=== PATIENT | female | born 1990 | race Asian ===

== ENCOUNTER 2025-09-08 11:37 | Emergency (ER) | payer OTHER ==
[~2025-09-08] VITALS: Ht 160 cm; Wt 77.0 kg
[2025-09-08 11:46] VITALS: O2SAT 100
[2025-09-08 12:45] LABS: BASOPHILS % 0.4 % (0.0-2.0); EOSINOPHILS % 3.0 % (0.0-5.0); HEMATOCRIT. 39.7 % (36.0-48.0); HEMOGLOBIN. 13.2 g/dL (12.0-16.0); LYMPHOCYTES % 33.4 % (20.0-50.0); MEAN PLATELET VOLUME 8.1 fl (7.4-10.4); MONOCYTES % 8.5 % (2.0-8.0); NEUTROPHILS % 54.7 % (40.0-76.0); PLATELET 428 x1000/uL (130-400); RED BLOOD CELL COUNT 4.26 mill/uL (4.2-5.4); RED CELL DISTRIBUTION WIDTH 12.9 % (11.6-14.6)
[2025-09-08 12:59] LABS: CREATININE 0.7 mg/dL (0.6-1.0); UREA NITROGEN BLOOD 10 mg/dL (9-23)
[2025-09-08 13:01] LABS: ASPARTATE AMINOTRANSFERASE 14 IU/L (<34); BILIRUBIN DIRECT 0.1 mg/dL (<=3.0); BILIRUBIN TOTAL 0.5 mg/dL (0.1-1.0); PROTEIN TOTAL 7.0 g/dL (6.0-8.3)
[2025-09-08 13:56] VITALS: BP 124/75; PULSE 72; RESP 14; TEMP 36.7; O2SAT 100
[2025-09-08] MEDS: ACETAMINOPHEN 325MG TABLET PO ONE (13:56)
[2025-09-08] MEDS: KETOROLAC 15MG/ML VIAL IV ONE (13:56)
[2025-09-08] MEDS: SODIUM CHLORIDE 0.9% 1,000 ML IV ONE (13:56)
[2025-09-08] MEDS ORDERED: IOHEXOL-350 100 ML BOTTLE ONE (15:09)
== END 2025-09-08 13:59 | disposition home or self-care (01) ==
LOC: ER 11:37
DX: G43.909 Migraine, unspecified, not intractable, without status migrainosus (principal); M79.601 Pain in right arm; I63.9 Cerebral infarction, unspecified
CPT/HCPCS: 80076; 80048; 80320; 85025; 85730; 36415; 71045; 70496; 70498; 70450; 93005; 96374; 99285; Q9967; J1885; J7030; A4606; G0480